=== PATIENT | female | born 2000 | race Caucasian/White ===

== ENCOUNTER 2021-11-19 05:30 | Day surgery (SDC) | payer BC ==
[~2021-11-19] VITALS: Ht 149.9 cm; Wt 59.0 kg
[2021-11-19 05:53] LABS: HCG,QUAL RESULT NEGATIVE (NEGATIVE)
[2021-11-19] MEDS ORDERED: ACETAMINOPHEN I.V. 1000 MG 100 ML IV ONE (06:53)
[2021-11-19] MEDS ORDERED: NS IRRIG SOLN 1000 ML IR ONE (07:30)
[2021-11-19] MEDS ORDERED: ROCURONIUM BROMIDE 10 MG/ML (ZEMURON) ONE (07:30)
[2021-11-19] MEDS ORDERED: PROPOFOL 200MG/ 20ML VIAL (DIPRIVAN) IV ONE (07:30)
[2021-11-19] MEDS ORDERED: MUPIROCIN 2% TOPICAL OINTMENT 22 GM ONE (07:30)
[2021-11-19] MEDS ORDERED: SUGAMMADEX SODIUM 200 MG/2 ML VIAL IV ONE (07:30)
[2021-11-19] MEDS ORDERED: LIDOCAINE/EPI MPF 1%1:200000 30 ML VIAL ONE (07:30)
[2021-11-19] MEDS ORDERED: OXYMETAZOLINE HCL 0.05% NASAL SPRAY NS ONE (07:30)
[2021-11-19] MEDS ORDERED: ONDANSETRON HCL 4 MG/2 ML VIAL ONE (07:30)
[2021-11-19] MEDS ORDERED: LIDOCAINE PF 2%, 200 MG/10 ML AMPUL.LUER (EPIDURAL) INJ ONE (07:30)
[2021-11-19] MEDS ORDERED: MIDAZOLAM HCL 5 MG/5 ML VIAL ONE (07:30)
[2021-11-19] MEDS ORDERED: DEXAMETHASONE SOD PHOSPHATE 4 MG/ML VIAL ONE (07:30)
[2021-11-19] MEDS ORDERED: DESFLURANE 15 MIN GAS INH ONE (07:30)
[2021-11-19] MEDS ORDERED: NS 1000 ML IV.SOLN IV ONE (07:30)
[2021-11-19] MEDS ORDERED: fentaNYL CITRATE 250 MCG/5 ML AMP ONE (07:30)
[2021-11-19] MEDS ORDERED: LABETALOL 100 MG/ 20ML VIAL IVP PRN (08:30)
[2021-11-19] MEDS ORDERED: METOCLOPRAMIDE HCL 10 MG/2 ML VIAL IVP PRN (08:30)
[2021-11-19] MEDS ORDERED: hydrALAZINE HCL 20 MG/ML VIAL IVP PRN (08:30)
[2021-11-19] MEDS ORDERED: MEPERIDINE HCL/PF 25 MG/ML DISP.SYRIN IVP PRN (08:30)
[2021-11-19] MEDS ORDERED: HYDROmorphone 1 MG/ML INJ. CARTRIDGE IVP PRN ×2 (08:30)
[2021-11-19] MEDS ORDERED: LR 1,000 ML IV SCH (08:30)
[2021-11-19] MEDS ORDERED: MIDAZOLAM HCL 2 MG/2 ML VIAL (VERSED) IVP PRN (08:30)
[2021-11-19] MEDS ORDERED: HYDROmorphone 1 MG/ML INJ. CARTRIDGE ONE ×2 (10:50→12:06)
[2021-11-19] MEDS ORDERED: MIDAZOLAM HCL 2 MG/2 ML VIAL (VERSED) ONE (10:51)
[2021-11-19 15:54] VITALS: BP_SYST 108
== END 2021-11-19 15:12 | disposition home or self-care (01) ==
LOC: SDS 05:30 → SMU 05:30 → SDS 15:12
PROVIDERS: ATTEND Otolaryngology
DX: J34.89 Other specified disorders of nose and nasal sinuses (principal); D38.5 Neoplasm of uncertain behavior of other respiratory organs; J30.1 Allergic rhinitis due to pollen; J34.2 Deviated nasal septum; Z79.899 Other long term (current) drug therapy; Z20.822 Contact with and (suspected) exposure to COVID-19
CPT/HCPCS: 30140; 30520; 31240; 36415 ×2; 84703; 87426; 88304; 88311; J0131; J1100; J1170; J2001; J2250; J2405; J2704; J3010; J3465; J3490; J7030; U0003